=== PATIENT | male | born 2000 | race Caucasian/White ===

== ENCOUNTER 2022-10-10 06:17 | Day surgery (SDC) | payer OTHER, SELFPAY ==
[2022-10-10] VITALS (14 sets, daily range): BP systolic 92–135; BP diastolic 38–80; PULSE 61–74; RESP 14–16; TEMP 36–37.1; O2SAT 95–99; BMI 29.1
[2022-10-10] MEDS: SODIUM CHLORIDE 0.9 % (FLUSH) 10 ML SYRINGE IVF (07:05)
[2022-10-10] MEDS: LACTATED RINGERS 1000 ML 1,000 ML 100 ML IV ×2 (07:05→09:00)
--- NOTE | 2022-10-10 07:09 | SUR.PREOP ---
Patient provided home covid negative results to RN.
--- NOTE | 2022-10-10 07:09 | SUR.PREOP ---
TIME?OUT:?12 PT/RN/MDA?VERIFICATION?OF?SURGICAL?SITE,?PROCEDURE,?AND?CONSENT OBTAINED?PRIOR?TO?INVASIVE?PROCEDURE.[id number]
[2022-10-10] MEDS: MIDAZOLAM HCL 1 MG/ML inj IVP (07:14)
[2022-10-10] MEDS: fentaNYL 100 MCG/2 ML inj IVP (07:14)
--- NOTE | 2022-10-10 07:25 | W.ANESCHARGE ---
Anesthesia Charges Start Date/Time Anesthesia Start Date: 10/10/22 Anesthesia Start Time: 07:31 Stop Date/Time Anesthesia Stop Date: 10/10/22 Anesthesia Stop Time: 09:00
--- NOTE | 2022-10-10 07:25 | W.PM.NB ---
Nerve Block Nerve Block Time Seen by Provider: 07:20 Date Seen: 10/10/22 Type of block requested by surgeon for post-operative analgesia: popliteal Side: right Time out performed: Yes Verification of patient name: Yes Verification of date of : Yes Site marking: site marked Name of person performing procedure: Macho Continuous monitoring Was continuous monitoring of O2 sat, B/P, athletic monitor, recorded every 15 minutes?: Yes Procedure Checklist: sterile prep, needles and gloves Ultrasound guided. Images saved: Yes Medications given in 5ml increments after negative aspiration: Marcaine %: 0.5 mL: 20 Needle gauge: 22 Patient tolerated procedure well: Yes Additional comments: Needle noted adjacent to nerve Block Charges Block Charge (with Pro Fee): Sciatic Nerve Use of Ultrasound Machine for Block: Yes- US Guidance/pain block
--- NOTE | 2022-10-10 07:26 | W.PM.NB ---
Nerve Block Nerve Block Time Seen by Provider: 07:22 Date Seen: 10/10/22 Type of block requested by surgeon for post-operative analgesia: adductor canal Side: right Time out performed: Yes Verification of patient name: Yes Verification of date of : Yes Site marking: site marked Name of person performing procedure: Macho Continuous monitoring Was continuous monitoring of O2 sat, B/P, cardiac catheterization technologist, recorded every 15 minutes?: Yes Procedure Checklist: sterile prep, needles and gloves Ultrasound guided. Images saved: Yes Medications given in 5ml increments after negative aspiration: Marcaine %: 0.5 mL: 20 Needle gauge: 20 Patient tolerated procedure well: Yes Additional comments: Needle noted adjacent to nerve Block Charges Block Charge (with Pro Fee): Femoral Nerve Use of Ultrasound Machine for Block: Yes- US Guidance/pain block
[2022-10-10] MEDS: CEFAZOLIN 2 GM INJ IVP (07:41)
--- NOTE | 2022-10-10 07:45 | CRLHL7_ITS ---
For Patients: As a result of the Cures Act, medical imaging exams and procedure reports are released immediately into your electronic medical record. You may view this report before your referring provider. If you have questions, please contact your health care provider. Indication: ORIF OF RT ANKLE Technique: Three fluoroscopic images of the right ankle. Fluoroscopic time 4.4 seconds. IMPRESSION: Fluoroscopic guidance for open reduction internal fixation of distal fibular fracture. Dictated by Marcin Madden MD @ 10/11/2022 6:11:47 AM (Electronically Signed)
--- NOTE | 2022-10-10 08:23 | PM.ORPRC ---
Procedure Note Date of procedure: 10/10/22 Procedure: PREOPERATIVE DIAGNOSES: 1. Right ankle lateral malleolus fracture (with bimalleolar equivalent) - unstable on stress imaging POSTOPERATIVE DIAGNOSES: 1. Right ankle lateral malleolus fracture (with bimalleolar equivalent) - unstable on stress imaging NAME OF OPERATION: 1. Right ankle lateral malleolus open reduction with internal fixation. 2. 40633 - intraoperative fluoroscopy up to 1 hour. SURGEON: Steven Alcazar MD HEMATOLOGY SUPERVISOR: Rian Funes PA-C; Of note, an surgery assistant was critical for this case to aide in patient positioning, leg manipulation, tissue retraction, closure, patient safety, & splinting. ANESTHESIA: Spinal + popliteal block. EBL: 2 mL IMPLANTS: Arthrex 3.5 mm cortical nonlocking screws (x2 for interfragmentary fixation). TOURNIQUET: 40 minutes at 300 torr. INDICATIONS: The patient is a pleasant, 21-year-old male who sustained a right ankle injury in the recent past. They had difficulty bearing weight. Workup included xrays which revealed an unstable ankle fracture. Given these findings, surgery was recommended to stablize the ankle. FINDINGS: Closed, long oblique lateral malleolus ankle fracture near the [place]aly B location. [place] stress radiographs revealed increased medial clear space widening consistent with bimalleolar equivalent ankle fracture. PROCEDURE: Following a thorough discussion of risks, benefits, and alternatives, consent was obtained and the right ankle was marked. The patient was brought to the operating room and placed supine on the operating table. Induction of anesthesia was undertaken. Appropriate time out was performed identifying proper patient, site and procedure. 2 g IV Ancef was administered within 1 hour of incision preoperatively. The right lower extremity was prepped and draped in the appropriate sterile fashion using ChloraPrep prep. The limb was exsanguinated and the tourniquet inflated. A longitudinal incision was made overlying the distal fibula. Sharp incision through skin and subcutaneous tissue, while protecting any crossing neurologic structures, was performed allowing subperiosteal elevation. The fracture was encountered, and cleared of interposed periosteum and fracture hematoma. The joint was entered, and thoroughly irrigated with normal saline performed. The fracture was reduced and temporarily held with reduction clamps. 2 separate 3.5 mm interfragmentary screws were then drilled, overdrilled, countersunk, and placed with excellent compression through the fracture site and good rotational control. After confirming appropriate reduction/positioning on C-arm fluoroscopic imaging, the fracture was stabilized with the hardware noted. Fluoroscopy was utilized for confirmation of screw length / positioning. Additionally, the syndesmosis was stressed and found to be stable. At this stage, the wound was thoroughly irrigated with normal saline. Closure was performed with #0 Vicryl for the deep periosteum, tourniquet deflated and hemostasis achieved. 3-0 Vicryl for the subcutaneous, and 4-0 statafix for subcuticular layers completed the closure. Dermabond was applied, dressings were applied, and a sugar-tong splint was applied. The patient was awoken from anesthesia and transferred to the PACU in stable condition. PLAN: 1. Elevate operative extremity. 2. Encouraged ice. 3. Percocet for pain as needed. 4. Follow up with PA visit in 1-2 weeks for wound check and splint removal. Cam boot placement and padding of sorts over the incision site (possibly with Mepilex) to avoid irritation from the boot. 5. Progress/gradually increase weightbear as tolerated.
--- NOTE | 2022-10-10 09:01 | W.ANESCHARGE ---
Anesthesia Charges Start Date/Time Anesthesia Start Date: 10/10/22 Anesthesia Start Time: 07:31 Stop Date/Time Anesthesia Stop Date: 10/10/22 Anesthesia Stop Time: 09:00
== END 2022-10-10 10:45 | disposition home or self-care (01) ==
PROVIDERS: Visit Provider Orthopaedic Surgery Sports Medicine
PROC: (CPT 27792; principal; 2022-10-10 07:45)
DX: S82.61XA Displaced fracture of lateral malleolus of right fibula, initial encounter for closed fracture (principal)
CPT/HCPCS: 27792; 01480; 73610; 76000; 76942; 97116; 97161; A4580; C1713; J0690; J1100; J2250; J2405; J2704; J3010; J3490; J7120

== ENCOUNTER 2022-11-12 10:45 | Outpatient (RCR) | payer OTHER, SELFPAY | END 2023-03-12 23:59 | disposition home or self-care (01) | PROVIDERS: Visit Provider Physician Assistant Surgical | DX: Z98.890 Other specified postprocedural states (principal); Z87.81 Personal history of (healed) traumatic fracture; Z51.89 Encounter for other specified aftercare | CPT/HCPCS: 97110; 97162 ==